=== PATIENT | female | born 1950 | race Asian ===

== ENCOUNTER 2018-08-15 05:10 | Inpatient (IN) | payer OTHER ==
[~2018-08-15] VITALS: Ht 154.9 cm; Wt 64.4 kg
[2018-08-15] MEDS ORDERED: CEFAZOLIN SOD 2 GM in D5W 50 ML IV ONE (07:00)
[2018-08-15] MEDS ORDERED: IRBE300T40 PO (07:27)
[2018-08-15] MEDS ORDERED: LIP10 PO (07:27)
[2018-08-15] MEDS ORDERED: AMLO5TAB4 PO (07:27)
[2018-08-15] MEDS ORDERED: ALEN10TA6 PO (07:27)
[2018-08-15] MEDS ORDERED: ROCURONIUM BROMIDE 10 MG/ML (ZEMURON) IV ONE (08:10)
[2018-08-15] MEDS ORDERED: DEXAMETHASONE SOD PHOSPHATE 4 MG/ML VIAL IVP ONE (08:10)
[2018-08-15] MEDS ORDERED: WATER FOR IRRIGATION,STERILE 1,000 ML IRRIG.SOLN IR ONE (08:10)
[2018-08-15] MEDS ORDERED: LR 1,000 ML IV.SOLN IV ONE (08:10)
[2018-08-15] MEDS ORDERED: GLYCOPYRROLATE 0.2 MG/ML VIAL IJ ONE (08:10)
[2018-08-15] MEDS ORDERED: fentaNYL CITRATE/PF 100 MCG/2 ML AMP IVP ONE (08:10)
[2018-08-15] MEDS ORDERED: PROPOFOL 200MG/ 20ML VIAL (DIPRIVAN) IV ONE (08:10)
[2018-08-15] MEDS ORDERED: LIDOCAINE/EPI 1% 1:100000 20 ML VIAL INJ ONE (08:10)
[2018-08-15] MEDS ORDERED: CEFAZOLIN 2 GM IVPB PREMIX 50 ML IV ONE (08:10)
[2018-08-15] MEDS ORDERED: SEVOFLURANE 15 MIN GAS INH ONE (08:10)
[2018-08-15] MEDS ORDERED: PHENYLEPHRINE HCL 10 MG/ML VIAL (NEOSYNEPHRINE) IV ONE (08:10)
[2018-08-15] MEDS ORDERED: MIDAZOLAM HCL 5 MG/5 ML VIAL IVP ONE (08:10)
[2018-08-15] MEDS ORDERED: ONDANSETRON HCL 4 MG/2 ML VIAL IVP ONE (08:10)
[2018-08-15] MEDS ORDERED: fentaNYL CITRATE/PF 100 MCG/2 ML AMP IVP PRN ×2 (09:00)
[2018-08-15] MEDS ORDERED: ONDANSETRON HCL 4 MG/2 ML VIAL IVP PRN ×2 (09:00→13:45)
[2018-08-15] MEDS: KCL 20 mEq in D5/0.45NS 1000mL 1,000 ML IV SCH ×2 (13:40→20:52)
[2018-08-15] MEDS ORDERED: ONDANSETRON 4 MG ODT TAB PO PRN (13:45)
[2018-08-15] MEDS ORDERED: fentaNYL CITRATE/PF 100 MCG/2 ML AMP ONE (14:02)
[2018-08-15 15:00] VITALS: BP_SYST 140
[2018-08-15] MEDS: HYDROcodone/ACETAMIN 5-325 MG TAB (NORCO/ VICODIN) PO PRN (18:38)
[2018-08-15 20:00] VITALS: BP_SYST 143
[2018-08-15] MEDS: CALCIUM 500 MG/TAB PO SCH (20:51)
[2018-08-15 21:43] LABS: ALBUMIN 3.1 g/dL (3.4-4.8); CALCIUM 8.6 mg/dL (8.4-11.0)
[2018-08-16 00:05] VITALS: BP_SYST 108
[2018-08-16] MEDS: KCL 20 mEq in D5/0.45NS 1000mL 1,000 ML IV SCH ×2 (02:56→09:02)
[2018-08-16] MEDS: HYDROcodone/ACETAMIN 5-325 MG TAB (NORCO/ VICODIN) PO PRN (06:08)
[2018-08-16] MEDS ORDERED: LEVOTHYROXINE SODIUM 0.15 MG TABLET PO SCH (07:00)
[2018-08-16 08:05] VITALS: BP_SYST 153
[2018-08-16] MEDS: CALCIUM 500 MG/TAB PO SCH (09:02)
[2018-08-16 10:40] LABS: ALBUMIN 3.2 g/dL (3.4-4.8); CALCIUM 8.3 mg/dL (8.4-11.0)
[2018-08-16 11:34] VITALS: BP_SYST 129
[2018-08-16 12:09] VITALS: BP_SYST 129
[2018-08-16] MEDS ORDERED: MUPI1OIN4 (12:58)
[2018-08-16] MEDS ORDERED: CALC-823 PO (13:00)
[2018-08-16] MEDS ORDERED: LEVO100T9 PO (13:02)
[2018-08-16] MEDS ORDERED: HYDR-4272 PO ×2 (13:03→13:04)
== END 2018-08-16 13:50 | disposition home or self-care (01) | DRG 627 ==
LOC: SDS 05:10 → SMU 05:10 → SDS 15:45 → SMU 15:47
PROVIDERS: ADMIT Otolaryngology; ATTEND Otolaryngology
PROC: 0GTK0ZZ Resection of Thyroid Gland, Open Approach (ICD-10-PCS; principal; 2018-08-16)
DX: E04.2 Nontoxic multinodular goiter (principal); I10 Essential (primary) hypertension; M81.8 Other osteoporosis without current pathological fracture; Z98.51 Tubal ligation status; Z90.12 Acquired absence of left breast and nipple; Z91.09 Other allergy status, other than to drugs and biological substances; Z87.891 Personal history of nicotine dependence
CPT/HCPCS: 36415; 82040-TC; 82310-TC; 83970; 87081; 88305; 88307; 94010; C1782; J0690; J1100; J2250; J2370; J2405; J2704; J3010; J3490; J7060; J7120